=== PATIENT | male | born 1985 | race Caucasian/White ===

== ENCOUNTER → 2020-03-26 07:47 | Outpatient (BNVA) | payer MEDICARE, SELFPAY | PROVIDERS: Family Provider Family Medicine; PCP Family Medicine; Visit Provider Specialist | DX: G62.9 Polyneuropathy, unspecified (principal); M79.661 Pain in right lower leg | CPT/HCPCS: 95909 ==

== ENCOUNTER 2020-05-29 15:34 | Outpatient (CLI) | payer MEDICARE, SELFPAY ==
[2020-05-29 16:41] LABS: C Reactive Protein 5.6 mg/L (0.0-4.9); Vitamin B12 292 pg/mL (232-1245)
[2020-05-29 17:06] LABS: Folate Level > 20.0 ng/mL (4.5-32.2)
[2020-05-29 17:56] LABS: Erythrocyte Sedimentation Rate 11 mm/hr (0-10)
[2020-06-04 10:02] LABS: Methylmalonic Acid 163 nmol/L (87-318)
== END 2020-05-29 15:35 | disposition home or self-care (01) ==
LOC: LAB 15:39
PROVIDERS: PCP Family Medicine; Visit Provider Licensed Practical Nurse
DX: G62.89 Other specified polyneuropathies (principal)
CPT/HCPCS: 82607; 82746; 83921; 84260; 85651; 86140; 86431; 99204

== ENCOUNTER → 2020-06-05 14:52 | Outpatient (BNVA) | payer MEDICARE, SELFPAY | PROVIDERS: PCP Family Medicine; Visit Provider Licensed Practical Nurse | DX: E53.8 Deficiency of other specified B group vitamins (principal); G62.89 Other specified polyneuropathies | CPT/HCPCS: 99213 ==

== ENCOUNTER 2020-06-16 10:27 | Outpatient (RCR) | payer MEDICARE, SELFPAY | END 2020-07-05 23:59 | disposition home or self-care (01) | LOC: MPT 10:27 | PROVIDERS: PCP Family Medicine; Referring Provider Licensed Practical Nurse; Visit Provider Licensed Practical Nurse | DX: G62.89 Other specified polyneuropathies (principal) | CPT/HCPCS: 97110; 97140; 97161; 97530 ==

== ENCOUNTER → 2020-06-30 08:50 | Outpatient (BNVA) | payer MEDICARE, SELFPAY | PROVIDERS: PCP Family Medicine; Visit Provider Licensed Practical Nurse | DX: G62.89 Other specified polyneuropathies (principal) | CPT/HCPCS: 99213 ==

== ENCOUNTER → 2021-01-06 12:37 | Outpatient (BNVA) | payer MEDICARE, SELFPAY | PROVIDERS: PCP Family Medicine; Visit Provider Specialist | DX: G43.719 Chronic migraine without aura, intractable, without status migrainosus (principal) | CPT/HCPCS: 99204 ==

== ENCOUNTER → 2021-02-16 09:45 | Outpatient (BNVA) | payer MEDICARE, SELFPAY | PROVIDERS: PCP Family Medicine; Visit Provider Specialist | DX: G43.709 Chronic migraine without aura, not intractable, without status migrainosus (principal) | CPT/HCPCS: 99214 ==

== ENCOUNTER → 2021-04-06 10:24 | Outpatient (BNVA) | payer MEDICARE, SELFPAY | PROVIDERS: PCP Family Medicine; Visit Provider Specialist | DX: G43.709 Chronic migraine without aura, not intractable, without status migrainosus (principal); Z71.89 Other specified counseling | CPT/HCPCS: 99213 ==

== ENCOUNTER → 2021-04-15 09:31 | Outpatient (BNVA) | payer MEDICARE, SELFPAY | PROVIDERS: PCP Family Medicine; Visit Provider Family Medicine | DX: G43.019 Migraine without aura, intractable, without status migrainosus (principal); G62.89 Other specified polyneuropathies; R51.9 Headache, unspecified; G89.29 Other chronic pain; J30.2 Other seasonal allergic rhinitis; K21.9 Gastro-esophageal reflux disease without esophagitis; E53.8 Deficiency of other specified B group vitamins; Z13.1 Encounter for screening for diabetes mellitus; Z79.899 Other long term (current) drug therapy | CPT/HCPCS: 80053; 80061; 82607; 85025 ==

== ENCOUNTER → 2022-12-08 15:16 | Outpatient (BNVA) | payer MEDICARE, SELFPAY | PROVIDERS: PCP Family Medicine; Visit Provider Internal Medicine | DX: G43.019 Migraine without aura, intractable, without status migrainosus (principal) | CPT/HCPCS: 85651 ==

== ENCOUNTER → 2023-02-02 09:34 | Outpatient (BNVA) | payer MEDICARE, SELFPAY | PROVIDERS: PCP Family Medicine; Visit Provider Internal Medicine Endocrinology, Diabetes & Metabolism | DX: D49.7 Neoplasm of unspecified behavior of endocrine glands and other parts of nervous system (principal); E78.1 Pure hyperglyceridemia | CPT/HCPCS: 82533; 84146; 84305; 84403; 84439; 84443 ==

== ENCOUNTER → 2023-03-22 09:55 | Outpatient (BNVA) | payer MEDICARE, SELFPAY | PROVIDERS: PCP Family Medicine; Visit Provider Surgery | DX: K21.9 Gastro-esophageal reflux disease without esophagitis (principal) | CPT/HCPCS: 99203 ==

== ENCOUNTER 2023-04-15 09:32 | Day surgery (SDC) | payer MEDICARE, SELFPAY ==
[2023-04-13 12:40] VITALS: BMI 42.0
[2023-04-15 10:14] VITALS: BP 121/72; PULSE 75; RESP 18; TEMP 36.2; O2SAT 99
[2023-04-15] MEDS: sodium chloride 0.9% 1,000 ML 30 ML IV (10:23)
--- NOTE | 2023-04-15 11:06 | ANES.PREANE2 ---
Pre-Anesthetic Assessment Height/Weight: Height 1.57 m Weight 104.326 kg Temp Pulse Resp BP Pulse Ox O2 Del Method 97.2 F L 75 18 121/72 99 Room Air 04/15/23 10:14 04/15/23 10:14 04/15/23 10:14 04/15/23 10:14 04/15/23 10:14 04/15/23 10:14 Operation Date: 04/15/23 11:00 Proposed Procedures p EGD [id number],K21.9(Not Applicable) - Rogelio Mills DO Familial anesthetic complications: PONV Was Beta Luis F taken within 24 hours: N/A Was Clonidine taken within 24 hours: N/A Last intake: > 8hrs Social No alcohol and No tobacco Exam alert, oriented x 3, clear to auscultation bilaterally and regular rate & rhythm Airway Mallampati: Class II Dentition: full GI Gastroesophageal Reflux Disease Neuropsych pituitary cyst, Anesthetic Plan ASA status: 3 Anesthesia: MAC Risk of > 500 ml blood loss (7ml/kg in children): No Medications/Allergies Home Medications Medication Instructions Recorded Confirmed Last Taken Type cetirizine 10 mg capsule (All Day 10 mg PO DAILY 90 days #90 caps 05/04/22 04/15/23 04/14/23 Rx Allergy (cetirizine)) triamcinolone acetonide 0.1 % 1 applic topical BID #454 grams 05/04/22 04/13/23 Unknown Rx topical cream cholecalciferol (vitamin D3) 350 1,000 unit PO DAILY 12/22/22 04/15/23 04/14/23 History mcg (14,000 unit) capsule erenumab-aooe 70 mg/mL 75 mg SUBCUT .monthly 12/22/22 04/13/23 03/17/23 History subcutaneous auto-injector (Aimovig Autoinjector) fiber well- vitafusion gummies 10 mg PO DAILY 12/22/22 04/13/23 04/13/23 History mecobalamin (vitamin B12) 5,000 1,000 mcg PO DAILY 12/22/22 04/15/23 04/14/23 History mcg chewable tablet multivitamin 1 tab PO DAILY 12/22/22 04/15/23 04/14/23 History omega 3-qib-oty-fish oil 1,000 mg 1 cap PO DAILY 12/22/22 04/15/23 04/14/23 History (120 mg-180 mg) capsule (Fish Oil) pantoprazole 40 mg tablet,delayed 40 mg PO BID 04/13/23 04/15/23 04/14/23 History release Allergies Allergy/AdvReac Type Severity Reaction Status Date / Time No Known Allergies Allergy Verified 04/13/23 12:33 Current Medications Generic Name Dose Route Start Last Admin Trade Name Freq PRN Reason Stop Dose Admin Sodium Chloride 1,000 mls @ 30 mls/hr 04/15/23 09:45 04/15/23 10:23 Sodium Chloride 0.9% IV 04/16/23 09:44 30 mls/hr .Q24H ADRIEN Administration PFSH Anesthesia Medical History B12 deficiency Blood per rectum History of hemorrhoids Peripheral neuropathy Pituitary tumor Surgical History H/O removal of testicle Family History Father Bipolar 1 disorder Family/Other Neuropathy Social History Smoking and tobacco status: never smoked Alcohol intake: never Substance/Drug Use: never Caregiver/support person: Yes (Mother. Patient mild retardation. ) Household members: family Housing: House Marital status: Single service: No Current occupational status: disabled Data Anesthesia Cardiac Studies: No Data to Display
--- NOTE | 2023-04-15 11:36 | W.PM.OPSUD ---
Surgery/Procedure H&P Update DATE OF PROCEDURE: April 15, 2023 DATE H&P PERFORMED: 03/22/23 H&P UPDATE INFORMATION: I have reviewed H&P completed within last 30 days, I have examined patient prior to procedure and No changes to prior documentation PLANNED PROCEDURE: Operation Date: 04/15/23 11:00 Proposed Procedures p EGD [id number],K21.9(Not Applicable) - Rogelio Mills, DO
--- NOTE | 2023-04-15 12:30 | ANE.PACU2 ---
Inpatient post-anesthesia follow up: Airway intact: Yes Vital signs: Temperature 97 F Pulse Rate 78 Respiratory Rate 16 Blood Pressure 118/72 Pulse Oximetry 97 Oxygen Delivery Me thod Room Air Oxygen Flow Rate Fraction of Inspir ed Oxygen Hydration adequate: Yes Nausea and vomiting: No Pain level: 1 Mental status: Baseline
[2023-04-15 12:31] VITALS: BP 105/63; PULSE 71; RESP 14; TEMP 36.1; O2SAT 96
[2023-04-15 12:41] VITALS: BP 103/65; PULSE 76; RESP 14; O2SAT 93
[2023-04-15 12:51] VITALS: BP 117/81; PULSE 66; RESP 14; O2SAT 95
[2023-04-15 13:01] VITALS: BP 118/72; PULSE 78; RESP 16; O2SAT 97
== END 2023-04-15 13:40 | disposition home or self-care (01) ==
PROVIDERS: PCP Family Medicine; Visit Provider Surgery
PROC: 0DJ08ZZ Inspection of Upper Intestinal Tract, Via Natural or Artificial Opening Endoscopic (ICD-10-PCS; CPT 43235; principal; 2023-04-15 11:00)
DX: K21.9 Gastro-esophageal reflux disease without esophagitis (principal); K29.50 Unspecified chronic gastritis without bleeding; K31.7 Polyp of stomach and duodenum
CPT/HCPCS: 43239; 88305; 88342; J2704; J7030

== ENCOUNTER → 2023-05-06 16:08 | Outpatient (BNVA) | payer MEDICARE, SELFPAY | PROVIDERS: PCP Family Medicine; Visit Provider Surgery | DX: Z09 Encounter for follow-up examination after completed treatment for conditions other than malignant neoplasm (principal) | CPT/HCPCS: 99212 ==

== ENCOUNTER → 2023-07-21 09:26 | Outpatient (BNVA) | payer MEDICARE, SELFPAY | PROVIDERS: PCP Family Medicine; Visit Provider Emergency Medicine | DX: B34.9 Viral infection, unspecified (principal); R11.0 Nausea; U07.1 COVID-19 | CPT/HCPCS: 87400; 87426 ==

== ENCOUNTER → 2023-08-16 08:16 | Outpatient (BNVA) | payer MEDICARE, SELFPAY | PROVIDERS: PCP Family Medicine; Visit Provider Family Medicine | DX: D49.7 Neoplasm of unspecified behavior of endocrine glands and other parts of nervous system (principal); J30.2 Other seasonal allergic rhinitis; K21.9 Gastro-esophageal reflux disease without esophagitis | CPT/HCPCS: 84146; 84402; 84403 ==

== ENCOUNTER → 2024-01-09 09:16 | Outpatient (BNVA) | payer MEDICARE, SELFPAY | PROVIDERS: PCP Family Medicine; Visit Provider Family Medicine | DX: B34.9 Viral infection, unspecified (principal); J98.8 Other specified respiratory disorders; B97.89 Other viral agents as the cause of diseases classified elsewhere | CPT/HCPCS: 87400; 87426 ==

== ENCOUNTER 2025-07-04 18:12 | Emergency (ER) | payer MEDICARE, SELFPAY ==
--- OUTSIDE RECORDS SUMMARY | 2025-07-04 18:18 | XMS_ITS | Clinical Summary ---
Author Organization [facility] Address [address] [place]: Epic Prelude ADT [place] [address] Care Team Providers Care Logistics Manager Name Role Phone Unavailable Primary Care Provider Unavailabl e Allergies No known active allergies Medications No known medications Active Problems Problem Noted Date Diagnosed Date Overweight(278.02) 12/14/2008 Autism 12/09/2008 Mental retardation 12/09/2008 Encounters Date Type Department Care Team Description 05/14/2025 External Device Data STL ABSTRACTION Provider, Abstract 04/10/2025 External Device Data ST[facility] ABSTRACTION Provider, Abstract from Last 3 Months Immunizations Immunization Administration Dates Next Due (TDVAX)(7 YRS UP) TETANUS AN D DIPHTHERIA TOXOIDS, ADSORBED (2 LF OF TETANUS TOXOID AND 2 LF OF DIPHTHERIA TOXOID), 0.5ML (PF), IM 04/30/2002 Hepatitis B Vaccine 01/21/1999,12/17/1998 Influenza Seasonal Unspecified Formulation IM Social History Tobacco Use Types Packs/Day Years Used Date Smoking Tobacco: Never Smokeless Tobacco: Never Alcohol Use Standard Drinks/Week Comments No 0 (1 standard drink = 0.6 oz pur e alcohol) Sex and Gender Information Value Date Recorded Sex Assigned at Male 03/06/2025 11:04 PM CDT Legal Sex Male 2:28 PM TUBE MOUNTER Gender Identity Not on file Sexual Orientation Not on file Last Filed Vital Signs Vital Sign Reading Time Taken Comments Blood Pressure 112/64 03/22/2025 2:29 PM CDT Pulse 83 03/22/2025 2:29 PM CDT Temperature - - Respiratory Rate - - Oxygen Saturation 98% 03/22/2025 2:29 PM CDT Inhaled Oxygen Concentration - - Weight 110.7 kg (244 lb) 03/22/2025 2:29 PM CDT Height 177.8 cm (5' 10 ) 03/22/2025 2:29 PM CDT Body Mass Index 35.01 03/22/2025 2:29 PM CDT Plan of Treatment Upcoming Encounters Date Type Department Care Team (Late st Contact Info) Description 03/25/2026 10:30 AM CDT Office Visit [facility] [address] [place] [address] Ulisses Colunga MD [address] [place] [address] Health Maintenance Due Date Last Done Comments Pre-Diabetes and Diabetes Screening 1986 HEPATITIS B VACCINES (3 of 3 - 3-dose series) 04/08/1999 01/21/1999, 01/21/1999, 12/17/1998, Additional history exists HPV VACCINES (1 - 3-dose SCD M series) 2013 INFLUENZA VACCINE (#1) 2025 07/03/2004 COVID-19 Vaccine (2 - 2024-2 6 season) 2025 04/17/2021 DTAP/TDAP/TD VACCINES (7 - T d or Tdap) 10/04/2029 10/04/2019, 04/30/2002, 03/06/1992, Additional history exists Insurance [facility]
--- OUTSIDE RECORDS SUMMARY | 2025-07-04 18:18 | XMS_ITS | Encounter Summary ---
Author Organization [facility] Address [address] [place] [address] Care Team Providers Care Labor And Employment Paralegal Name Role Phone Florencio Mariee MD Primary Care Provider [phone] Encounter Details Date Type Department Care Team (Late st Contact Info) Description 12/06/2006 Outpatient Historical [facility] Ear, Nose and Throat 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
--- OUTSIDE RECORDS SUMMARY | 2025-07-04 18:18 | XMS_ITS | Encounter Summary ---
Author Organization [facility] Address [address] [place] [address] Care Team Providers Care Specialty Sales Consultant Name Role Phone Florencio Mariee MD Primary Care Provider [phone] Encounter Details Date Type Department Care Team (Latest Contact Info) Description 11/04/2006 Outpatient Historical [facility] Ear, Nose and Throat 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
--- OUTSIDE RECORDS SUMMARY | 2025-07-04 18:18 | XMS_ITS | Clinical Summary ---
Author Organization [facility] Address [address] [place] [address] Care Team Providers Care Sales Center Associate Name Role Phone Florencio Mariee MD Primary Care Provider [phone] Allergies No known active allergies Medications No known medications Active Problems Problem Noted Date Diagnosed Date Overweight(278.02) 12/14/2008 Mental retardation 12/09/2008 Autism 12/09/2008 Immunizations Immunization Administration Dates Next Due (TDVAX)(7 [...] on file Legal Sex Male 3:52 AM OFFICE ASSISTANT Gender Identity Not on file Sexual Orientation Not on file 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 Not on file Not on file Last Filed Vital Signs Vital Sign Reading Time Taken Comments Blood Pressure 130/80 09/07/2013 1:10 PM OFFICE ASSISTANT Pulse 88 09/07/2013 1:10 PM OFFICE ASSISTANT Temperature 36.3 C (97.3 F) 09/07/2013 1:10 PM OFFICE ASSISTANT Respiratory Rate 28 09/07/2013 1:10 PM OFFICE ASSISTANT Oxygen Saturation - - Inhaled Oxygen Concentration - - Weight 110.2 kg (243 lb) 09/07/2013 1:10 PM OFFICE ASSISTANT Height 180.3 cm (5' 11 ) 09/07/2013 1:10 PM OFFICE ASSISTANT Body Mass Index 33.89 09/07/2013 1:10 PM OFFICE ASSISTANT Plan of Treatment Health Maintenance Due Date Last Done Comments HEPATITIS B VACCINES (3 of 3 - 3-dose series) 04/08/1999 01/21/1999, 12/17/1998 DTAP/TDAP/TD VACCINES (2 - Tdap) 05/01/2002 04/30/20 02 HPV VACCINES (1 - 3-dose SCDM series) 2013 INFLUENZA VACCINE (#1) 2025 07/03/2004 Insurance MEDICARE PART A AND B Care Teams Sales Center Associate Relationship Specialty Start Date End Date Florencio Mariee MD [address] [place] [address] PCP - General 10/12/06
--- OUTSIDE RECORDS SUMMARY | 2025-07-04 18:18 | XMS_ITS | Encounter Summary ---
Author Organization [facility] Address [address] [place] [address] Care Team Providers Care Outside Production Inspector Name Role Phone Florencio Mariee MD Primary Care Provider [phone] Encounter Details Date Type Department Care Team (Latest Contact Info) Description 10/14/2006 Outpatient Historical [facility] Ear, Nose and Throat [address] [place] [phone] Devin Baker MD NO ADDRESS ON FILE Unspecified Perforation of Tympanic Membrane (Primary Dx); Unspecified Otorrhea; Unspecified Mental Retardation Social History Tobacco Use Types Packs/Day Years Used Date Smoking Tobacco: Never Assessed Sex and Gender Information Value Date Recorded Sex Assigned at Not on file Legal Sex Male 3:52 AM TOOL PLANNER Gender Identity Not on file Sexual Orientation Not on file documented as of this encounter Plan of Treatment Not on file documented as of this encounter Visit Diagnoses Diagnosis Perforation of tympanic membrane, unspecified- Primary Otorrhea, unspecified Unspecified intellectual disabilities documented in this encounter Care Teams Outside Production Inspector Relationship Specialty Start Date End Date Florencio Mariee MD [address] [place] [address] PCP - General 10/12/06 documented as of this encounter
--- OUTSIDE RECORDS SUMMARY | 2025-07-04 18:18 | XMS_ITS | Encounter Summary ---
Author Organization [facility] Address [address] [place] [address] Care Team Providers Care Marquetry Worker Name Role Phone Florencio Mariee MD Primary Care Provider [phone] Encounter Details Date Type Department Care Team (Late st Contact Info) Description 10/27/2005 Emergency [facility] Emergency Department [address] [place] [phone] Cheryl Orr FNP NO ADDRESS ON FILE BACKACHE NOS (Primary Dx) Social History Tobacco Use Types Packs/Day Years Used Date Smoking Tobacco: Never Assessed Sex and Gender Information Value Date Recorded Sex Assigned at Not on file Legal Sex Male 3:52 AM 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
--- OUTSIDE RECORDS SUMMARY | 2025-07-04 18:18 | XMS_ITS | Encounter Summary ---
Author Organization [facility] Address [address] [place] [address] Care Team Providers Care Labor Representative Name Role Phone Florencio Mariee MD Primary Care Provider [phone] Encounter Details Date Type Department Care Team (Late st Contact Info) Description 03/07/2007 Outpatient Historical [facility] Ear, Nose and Throat 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
--- OUTSIDE RECORDS SUMMARY | 2025-07-04 18:18 | XMS_ITS | Encounter Summary ---
Author Organization [facility] Address [address] [place] [address] Care Team Providers Care Ultrasound Specialist Name Role Phone Florencio Mariee MD Primary Care Provider [phone] Encounter Details Date Type Department Care Team (Late st Contact Info) Description 05/10/2005 Outpatient Historical [facility] FY06 Non-Staff, Physician NO ADDRESS ON FILE Social History Tobacco Use Types Packs/Day Years Used Date Smoking Tobacco: Never Assessed Sex and Gender Information Value Date Recorded Sex Assigned at Not on file Legal Sex Male 3:52 AM DISPATCH SPECIALIST Gender Identity Not on file Sexual Orientation Not on file documented as of this encounter Plan of Treatment Not on file documented as of this encounter Procedures Procedure Name Priority Date/Time Associated Diagnosis Comments URINALYSIS MICROSCOPY ONLY Routine 05/10/2005 2:45 AM CDT URINALYSIS W/REFLEX MICROSCOPIC Routine 05/10/2005 2:45 AM CDT documented in this encounter Results * (ABNORMAL) URINALYSIS (05/10/2005 2:45 AM CDT) COLOR UA Yellow Straw INTERFACE SYSTEM CLARITY UA Cloudy(A) Clear INTERFACE SYSTEM LEUKOCYTE ESTERASE UA NEGATIVE NEGATIVE INTERFACE SYSTEM NITRITE UA NEGATIVE NEGATIVE INTERFACE SYSTEM PH UA 5.5 5.0 - 9.0 INTERFACE SYSTEM PROTEIN UA Trace(A) NEGATIVE INTERFACE SYSTEM Comment: As of 05 positive protein results obtained on routine urinalysis will not be confirmed by sulfosalicylic acid (SSA) precipitation. Current methodology for protein detection is highly sensitive for detection of albumin; therefore, confirmation is not necessary. GLUCOSE UA NEGATIVE NEGATIVE INTERFACE SYSTEM KETONES UA NEGATIVE NEGATIVE INTERFACE SYSTEM UROBILINOGEN UA 0.2 0.2 INTE RFACE SYSTEM BILIRUBIN UA NEGATIVE NEGATIVE INTERFA CE SYSTEM BLOOD UA NEGATIVE NEGATIVE INTERFACE SYSTEM SPECIFIC GRAVITY UA >=1.030(A) 1.005 - 1.030 INTERFACE SYSTEM MICRO EXAM Yes(A) No INTERFACE SYSTEM 05/10/2005 2:45 AM CDT us Physician Non-Staff URINE ORDERABLES Final Resul t Performing Organization Address [facility] Co de Phone Number INTERFACE SYSTEM Refer to clinic/hospital department * URINALYSIS MICROSCOPY ONLY (05/10/2005 2:45 AM CDT) WBC URINE 0-2 0 - 2 INTERFACE SYSTEM RBC UA None Seen 0 - 2 INTERFACE SYSTEM HYALINE CAST 0-2 0 - 2 INTERFA CE SYSTEM BACTERIA UA None Seen None Seen INTERFAC E SYSTEM 05/10/2005 2:45 AM CDT Physician Non-Staff URINE ORDERABLES Final Resul t Performing Organization Address [facility] de Phone Number INTERFACE SYSTEM Refer to clinic/hospital department documented in this encounter Visit Diagnoses Not on filedocumented in this encounter Care Teams Ultrasound Specialist Relationship Specialty Start Date End Date Florencio Mariee MD [address] [place] [phone] PCP - General 10/12/06 documented as of this encounter
--- OUTSIDE RECORDS SUMMARY | 2025-07-04 18:18 | XMS_ITS ---
Author Name JARROD KNIGHT Address [address] [place] [address] Phone Organization [facility] Address [address] [place] [address] Phone Care Team Providers Care Glue Maker Name Role Phone MD JARROD KNIGHT Unavailable [phone] ALLERGIES, ADVERSE REACTIONS AND ALERTS Allergy Name Allergy Date Allergy Status Allergy Severity Allergy Reaction NO KNOWN DRUG ALLERGIES MEDICATIONS RxNorm Brand Name Prescription Ordered Value Order Unit Start Date Date Status Fill Status Indications [id number] proprano lol 40 mg tablet SIG: propranolol 40 mg oral tablet, days, Dispense #90 Tablet, 3 RefillsDirecti ons: One po tid 90 tablet 2021 Historic [id number] sumatrip sanchez succinat e 100 mg tablet SIG: sumatriptan succinate 100 mg oral tablet, days, Dispense #9 Tablet, 3 RefillsDirecti ons: 1/2 to one tablet prn acute migraine; may repeat once after 2 hours prn. 9 tablet 2021 Historic [id number] proprano lol 40 mg tablet SIG: propranolol 40 mg oral tablet, days, Dispense #270 Tablet, 3 RefillsDirecti ons: One po tid 270 tablet 2021 Historic [id number] sumatrip sanchez succinat e 100 mg tablet SIG: sumatriptan succinate 100 mg oral tablet, days, Dispense #270 Tablet, 3 RefillsDirecti ons: 1/2 to one tablet prn acute migraine; may repeat once after 2 hours prn. 270 tablet 2021 Historic [id number] rizatrip sanchez 10 mg tablet SIG: rizatriptan 10 mg oral tablet, 90 days, Dispense #36 Tablet, 0 RefillsDirecti ons: One po prn acute migraine; may repeat once after 2 hours prn. 36 tablet 2021 Historic [id number] nortript yline 10 mg capsule SIG: nortriptyline 10 mg oral capsule, 90 days, Dispense #180 Capsule, 0 RefillsDirecti ons: One po qhs x 1 week, then 2 caps po qhs. 180 capsule 2021 Historic [id number] nortript yline 25 mg capsule SIG: nortriptyline 25 mg oral capsule, 90 days, Dispense #90 Capsule, 4 RefillsDirecti ons: One po qhs 90 capsule 2021 Historic [id number] nortript yline 25 mg capsule SIG: nortriptyline 25 mg oral capsule, 90 days, Dispense #90 Capsule, 4 RefillsDirecti ons: One po qhs 90 capsule 2021 Historic [id number] rizatrip sanchez 10 mg tablet SIG: rizatriptan 10 mg oral tablet, 90 days, Dispense #36 Tablet, 4 RefillsDirecti ons: One po prn acute migraine; may repeat once after 2 hours prn. 36 tablet 2021 Historic [id number] Aimovig Autoinje ctor 70 mg/mL auto-inj neris SIG: Aimovig Autoinjector 70 mg/mL subcutaneous auto-injector, 0 days, Dispense #1 Milliliter, 12 RefillsDirecti ons: Inject 70 mg (1 ml) SQ monthly for migraine prevention 1 auto-in ctal 2022 Historic [id number] Aimovig Autoinje ctor 70 mg/mL auto-inj neris SIG: Aimovig Autoinjector 70 mg/mL subcutaneous auto-injector, 0 days, Dispense #1 Milliliter, 12 RefillsDirecti ons: Inject 70 mg (1 ml) SQ monthly for migraine prevention 1 auto-in ctal 2022 Current [id number] Nurtec ODT 75 mg tablet,d isintegr ating SIG: Nurtec ODT 75 mg oral tablet,disinte grating, 30 days, Dispense #16 Tablet, 12 Refills, Directions: One po prn acute migraine; limit 1 tab in 24 hours 16 tablet, disinte grating 2024 Historic [id number] Ubrelvy 100 mg tablet SIG: Ubrelvy 100 mg oral tablet, 30 days, Dispense #16 Tablet, 12 Refills, Directions: One po prn acute migraine; may repeat once after 2 hours prn. 16 tablet 2024 Current PROBLEMS Problem Code Problem Description Problem Status Problem Da te Problem End Date G43.719-Chronic migraine without aura, intractable, without status migrainosus Chronic migraine without aura, intractable, without status migrainosus Current 11/29/2021 G60.3-IDIOPATHIC PROGRESSIVE NEUROPATHY IDIOPATHIC PROGRESSIVE NEUROPATHY Current 11/29/2021 R20.0-Anesthesia of skin Anesthesia of skin Current 07/15/2022 R53.1-Weakness Weakness Current 08/24/2022 M21.371-FOOT DROP RIGHT FOOT FOOT DROP RIGHT FOOT Current 08/24/2022 PROCEDURES Procedure Description Date Notes NO PROCEDURES PERFORMED ASSESSMENTS Assessment None PLAN OF TREATMENT Assessment Planned Activity LOINC Planned Otilio e None CONSULTATION NOTE Note Author Date None HISTORY AND PHYSICAL NOTE Note Author Date None PROGRESS NOTE Note Author Date None DISCHARGE SUMMARY Note Author Date None CHIEF COMPLAINT AND REASON FOR VISIT FUNCTIONAL STATUS Functional or Cognitive Find ing None MENTAL STATUS Cognitive Finding None ENCOUNTERS Encounter Type Provider Diagnoses Start Date Location Disc harged to None SOCIAL HISTORY Social Status Observation Unknown if ever smoked Sex: Male CARE TEAM INFORMATION Glue Maker Provider ID Role Location Phone JARROD KNIGHT [phone] [address], [place] [address] INSURANCE PROVIDERS Payer Name Policy type / Coverage type Covered libertarian ID Policy [place] [facility] Private Health Insurance [id number] JAIRON Hassan
--- OUTSIDE RECORDS SUMMARY | 2025-07-04 18:18 | XMS_ITS | Encounter Summary ---
Author Organization [facility] Address [address] [place] [address] Care Team Providers Care Tool Machine Shop Supervisor Name Role Phone Florencio Mariee MD Primary Care Provider [phone] Encounter Details Date Type Department Care Team (Late st Contact Info) Description 10/12/2006 Emergency [facility] Emergency Department [address] [place] [phone] Pau Galvan NP NO ADDRESS ON FILE Unspecified Perforation of Tympanic Membrane (Primary Dx) Social History Tobacco Use Types Packs/Day Years Used Date Smoking Tobacco: Never Assessed Sex and Gender Information Value Date Recorded Sex Assigned at Not on file Legal Sex Male 3:52 AM NEEDLE 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
--- OUTSIDE RECORDS SUMMARY | 2025-07-04 18:19 | XMS_ITS | Encounter Summary ---
Author Organization [facility] Address [address] [place] [address] Care Team Providers Care Aeronautical Inspector Name Role Phone Florencio Mariee MD Primary Care Provider [phone] Encounter Details Date Type Department Care Team (Latest Contact Info) Description 03/07/2007 Outpatient Historical [facility] Ear, Nose and Thro[facility] [place] 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
--- OUTSIDE RECORDS SUMMARY | 2025-07-04 18:19 | XMS_ITS | Encounter Summary ---
Author Organization [facility] Address [address] [place] [address] Care Team Providers Care Trigonometry Tutor Name Role Phone Florencio Mariee MD Primary Care Provider [phone] Encounter Details Date Type Department Care Team (Latest Contact Info) Description 12/06/2006 Outpatient Historical [facility] Ear, Nose and Throat 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 Gender Identity Not on file Sexual Orientation Not on file documented as of this encounter Plan of Treatment Not on file documented as of this encounter Visit Diagnoses Diagnosis Dysfunct eustachian tube- Primary Dysfunction of Eustachian tube Other and unspecified chronic nonsuppurative otitis media Mixed hearing loss Mixed hearing loss, unspecified Unspecified intellectual disabilities documented in this encounter Care Teams Trigonometry Tutor Relationship Specialty Start Date End Date Florencio Mariee MD [address] [place] [phone] PCP - General 10/12/06 documented as of this encounter
--- OUTSIDE RECORDS SUMMARY | 2025-07-04 18:19 | XMS_ITS | Encounter Summary ---
Author Organization [facility] Address [address] [place] [address] Care Team Providers Care Rf Design Engineer Name Role Phone Florencio Mariee MD Primary Care Provider [phone] Encounter Details Date Type Department Care Team (Late st Contact Info) Description 10/14/2006 Outpatient Historical [facility] Ear, Nose and Throat [address] [place] 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
--- OUTSIDE RECORDS SUMMARY | 2025-07-04 18:19 | XMS_ITS | Encounter Summary ---
Author Organization [facility] Address [address] [place] [address] Care Team Providers Care Customer Service Representative Name Role Phone Florencio Mariee MD Primary Care Provider [phone] Encounter Details Date Type Department Care Team (Late st Contact Info) Description 08/24/2007 Outpatient Historical [facility] Ear, Nose and Throat [address] [place] 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
--- OUTSIDE RECORDS SUMMARY | 2025-07-04 18:19 | XMS_ITS | Encounter Summary ---
Author Organization [facility] Address [address] [place] [address] Care Team Providers Care Scouring Train Operator Chief Name Role Phone Florencio Mariee MD Primary Care Provider [phone] Encounter Details Date Type Department Care Team (Late st Contact Info) Description 08/24/2007 Outpatient Historical [facility] Ear, Nose and Throat [address] [place] 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
[2025-07-04 18:37] VITALS: BP 137/91; PULSE 78; TEMP 36.7; O2SAT 100; BMI 34.8
--- NOTE | 2025-07-04 19:50 | ED_ITS ---
HPI - Male Genitourinary General: Chief complaint: Urogenital-Male Stated complaint: unable to cath self today. Time Seen by Provider: 07/04/25 19:13 History of Present Illness: Selected Entries 07/04/25 18:37 ED Triage Comment PT ARRIVES POV WIT H FAMILY C/O NOT B EING ABLE TO SELF CATH. PT SELF CATH S X2 A DAY AND WAS UNABLE TO GET CAT HETER IN TODAY. [facility] CATH WAS AT 190 0 YESTERDAY PER PT . Patient is 39-year-old male with history of self cathing, twice daily, due to history of urethrocutaneous fistula with previous retention. This was recently reduced to twice daily self cathing by primary urologist located in [place] due to stricture at the urethral opening, and in the urethra inside the penis. Today, patient notes that he is unable to pass the catheter in his urethra. He is not have any dysuria. He is able to void without catheterization. He denies any fevers, flank pain. No history of renal colic. Associated symptoms: Deny dysuria Related Data Home Medications ?Medication ?Instructions ?Recorded ?Confirmed cholecalciferol (vitamin D3) 350 1,000 unit PO DAILY 0 12/22/22 01/12/24 mcg (14,000 unit) capsule erenumab-aooe 70 mg/mL 75 mg SUBCUT .monthly 01/12/24 subcutaneous auto-injector (Aimovig Autoinjector) fiber well- vitafusion gummies 10 mg PO DAILY 12/22/22 01/12/24 mecobalamin (vitamin B12) 5,000 1,000 mcg PO DAILY 01/12/24 mcg chewable tablet multivitamin 1 tab PO DAILY 12/22/2205/29 omega 7-fph-cbj-fish oil 1,000 mg 1 cap PO DAILY 12/2201/12/24 (120 mg-180 mg) capsule (Fish Oil) gabapentin 300 mg capsule 300 mg PO TID 07/21/2301/11 Previous Rx's ?Medication ?Instructions ?Recorded cetirizine 10 mg capsule (All Day 10 mg PO DAILY 90 da ys #90 caps 11/30/23 Allergy (cetirizine)) pantoprazole 20 mg tablet,delayed 20 mg PO DAILY PRN h eartburn 90 11/30/23 release days #90 tabs dextromethorphan polistirex 30 10 ml PO Q12H PRN cough #89 mL 01/09/24 mg/5 mL oral susp ext.release 12hr prednisone 20 mg tablet 40 mg (2 x 20 mg) PO .q AM 5 days 01/12/24 #10 tabs pcpmpvwhgfssyuc-rwgnmfbnzrnkjsh-UZ 7.5 ml PO Q6H PRN c old symptoms 01/16/24 2 mg-30 mg-10 mg/5 mL oral syrup #160 mL (Bromfed DM) cefdinir 300 mg capsule 300 mg PO BID 10 days #20 ca ps 07/04/25 Allergies Allergy/AdvReac Type Severity Reaction Status Date / Time No Known Allergies Allergy Verified 07/04/25 18:41 Review of Systems Const: Reports: fatigue; Denies: fever(s) Eyes: Denies: change in vision ENMT: Reports: throat pain Card: Denies: chest pain Resp: Reports: productive cough GI: Denies: abdominal pain or change in bowel habits : Reports: other (Urinary stricture); Denies: flank pain, difficulty urinating, dysuria, urinary frequency, urinary urgency, urinary hesitancy, urinary dribbling, difficulty starting urination or change in urine stream Musc: Denies: muscle weakness Skin/Breast: Denies: rash Neuro: Denies: headache(s) Psych: Denies: anxiety or depression Matty/Lymph: Denies: easy bleeding PFSH ED PFSH: Medical History (Updated 07/04/25 @ 21:09 by RHYS Ryder) Blood per rectum History of hemorrhoids B12 deficiency Pituitary tumor Peripheral neuropathy Surgical History History of esophagogastroduodenoscopy (EGD) Oct 2017 Hx of colonoscopy no polyps hemorrhoid's found, jun, H/O removal of testicle Family History Father Bipolar 1 disorder Family/Other Neuropathy Social History Smoking and tobacco/nicotine status: never used tobacco/nicotine Alcohol intake: never Substance/Drug Use: never Caregiver/support person: Yes (Mother. Patient mild retardation. ) Household members: family Housing: House Marital status: Single service: No Current occupational status: disabled Physical Exam Const: COMMON NORMALS: no acute distress, patient oriented x3 and alert GENERAL APPEARANCE: cooperative HENMT: COMMON NORMALS: atraumatic HEAD & SCALP: atraumatic THROAT: posterior oropharynx abnormal erythema Eye: COMMON NORMALS: conjunctivae normal CONJUNCTIVA: Yes conjunctivae normal Resp: COMMON NORMALS: normal respiratory effort and clear to auscultation bilaterally AUSCULTATION: clear to auscultation bilaterally Cardio: COMMON NORMALS: regular rate, regular rhythm and No murmurs present (Cardio) RATE: regular rate RHYTHM: regular rhythm GI: COMMON NORMALS: Normal to inspection, nondistended, normoactive bowel sounds present and non-tender : COMMON NORMALS: Yes no CVA tenderness BLADDER/KIDNEY EXAM: Yes no CVA tenderness MALE GROIN/PERINEUM EXAM: Yes Genital lesions present (Small urethral head stricture) PENIS: uncircumcised and Genital lesions present (Small urethral head stricture) Back/Pelvis: COMMON NORMALS: no CVA tenderness Extremity: GENERAL: Yes normal exam except as noted Neuro: COMMON NORMALS: patient oriented x3 and moves all extremities SENSORIUM/ORIENTATION: Yes alert GAIT: Yes Normal gait present Skin: COMMON NORMALS: no rashes or lesions noted GENERAL SKIN EXAM: no rashes or lesions noted and no erythema Course Vital Signs: Vital signs: Vital Signs Temperature 98.0 F 07/04/25 18:37 Pulse Rate 78 07/04/25 18:37 Blood Pressure 137/91 07/04/25 18:37 Pulse Oximetry 100 07/04/25 18:37 Oxygen Delivery Me thod Room Air 07/04/25 18:37 MDM - Male Medical Decision Making 195 ml bladder scan Then 100 ml output Patient is 39-year-old male with urocutaneous fistula opening on the dorsum of the penis. He is supposed to self cath twice daily. On evaluation in the ED, he did have WBCs of 21?50, indicating most likely associated pyuria with the 4+ bacteria. He did not have nitrate positive however. He will be treated as a UTI, which most likely worsened his issues with self cathing. I have advised holding off on self cathing for 24-48 hours and contacting primary urologist. He had 195 mL liter bladder scan prior to output of 100 mL. This is appropriate for urinary retention of the 95 mL. I discussed with patient and his mom I am concerned for issues with his stricture to await antibiotic coverage and retry with Uro-Jet. They both state understanding. They will call their urologist today in [place] for further decision making as well. All their questions answered their satisfaction. Medical Records I reviewed the patient's medical records. Lab Data I reviewed the patient's lab results. Laboratory Results Urine Color Yellow (Yellow) 07/04/25 20:04 Urine Appearance Clear (CLEAR) 07/04/25 20:04 Urine pH 5.5 (5-7) 07/04/25 20:04 Ur Specific [place] 1.014 (1.005-1.030) 07/04/25 20:04 Urine Protein Negative (Negative) 07/04/25 20:04 Urine Glucose (UA) Negative (Normal) 07/04/25 20:04 Urine Ketones Negative (Negative) 07/04/25 20:04 Urine Blood Negative (Negative) 07/04/25 20:04 Urine Nitrate Negative (Negative) 07/04/25 20:04 Urine Bilirubin Negative (Negative) 07/04/25 20:04 Urine Urobilinogen 0.2 mg/dL (Negative) 07/04/25 20:04 Ur Leukocyte Esterase 1+ (Negative) A 07/04/25 20:04 Urine RBC 0-2 /hpf (0-2) 07/04/25 20:04 Urine WBC 21-50 /hpf (0-5) H 07/04/25 20:04 Ur Squamous Epith Cells 0-5 /hpf (0-5) 07/04/25 20:04 Amorphous Sediment Not Reportable 07/04/25 20:04 Urine Bacteria 4+ /hpf (NONE) H 07/04/25 20:04 Hyaline Casts 0-4 /lpf H 07/04/25 20:04 No radiology studies performed this visit Discharge Plan Discharge Patient Disposition: Home Clinical Impression: Pyuria due to bacterial urinary tract infection Urethral stricture in male Qualifiers: Urethral stricture type: post-traumatic, male Qualified Code(s): N35.014 - Post-traumatic urethral stricture, male, unspecified Condition: Stable Prescriptions: New cefdinir 300 mg capsule 300 mg PO BID 10 Days Qty: 20 0RF No Action gabapentin 300 mg capsule 300 mg PO TID prednisone 20 mg tablet 40 mg PO .q AM 5 Days Qty: 10 0RF multivitamin Tablet 1 tab PO DAILY omega 1-pox-umt-fish oil [Fish Oil] 1,000 mg (120 mg-180 mg) capsule 1 cap PO DAILY cholecalciferol (vitamin D3) 350 mcg (14,000 unit) capsule 1,000 unit PO DAILY Aimovig Autoinjector 70 mg/mL auto-injector 75 mg SUBCUT .monthly mecobalamin (vitamin B12) 5,000 mcg tablet,chewable 1,000 mcg PO DAILY fiber well- vitafusion gummies 10 mg PO DAILY dextromethorphan polistirex 30 mg/5 mL suspension,extended rel 12 hr 10 ml PO Q12H PRN (Reason: cough) Qty: 89 2RF All Day Allergy (cetirizine) 10 mg capsule 10 mg PO DAILY 90 Days Qty: 90 0RF pantoprazole 20 mg tablet,delayed release (DR/EC) 20 mg PO DAILY PRN (Reason: heartburn) 90 Days Qty: 90 0RF rdcofepkqgjjlii-oakyxubdy-ZN [Bromfed DM] 2-30-10 mg/5 mL syrup 7.5 ml PO Q6H PRN (Reason: cold symptoms) Qty: 160 1RF Discharge Orders: Discharge ED (Routine); Ordered 07/04/25 Ordered By: Bing Jerez Referrals: Vishal Brice MD [Primary Care Provider, [facility]] Discharge Diet: Usual diet Discharge Activity: Resume usual activity Patient Instructions: Urinary Tract Infection in Women (ED), Patient Portal & Daniela Instructions Activity Restrictions/Additional Instructions: - Antibiotic sent to the pharmacy. Utilize as directed. - Since you are on an antibiotic, utilize an active culture yogurt or take daily probiotic -Since your output is fine right now, hold off on catheterization additional 24- 48 hours. When you do, utilize the lidocaine to avoid any pain. This was sent home for you. If you need to self cath before then, utilize the lidocaine. - Contact your urologist in [place] for further evaluation and information. -Feel free to return to the ED with further issues Thank you for choosing [facility] for your healthcare needs today. You have been screened and evaluated and felt safe for discharge. Health conditions do change or evolve sometimes and as such it is important that you follow up with your Primary Doctor to be re checked, 3-5 days is a general good time frame for follow up. You are always welcome to return to the ED for re assessment if your symptoms are worsening or you have new concerns Print Language: Sri Lankan Coding Level of Care Code ED Supervisor Personnel Clerks for Noel Turcios
[2025-07-04 20:21] LABS: Glucose Urine UA Negative (Normal); Nitrate Urine Negative (Negative); Specific Gravity, Urine 1.014 (1.005-1.030)
[2025-07-04 20:26] LABS: Add Urine Microscopic? YES
--- NOTE | 2025-07-04 20:54 | PC.NURSE ---
After bladder scan, 195mL urine noted on scan, pt was able to use restroom and urinated 100mL out for urine sample.
[2025-07-04] MEDS: lidocaine 2% Urojet 20 mL TOPICAL (21:17)
[2025-07-04] MEDS: cefTRIAXone 1,000 MG in water for injection-sterile 2.1 ML 2.1 MG IM (21:22)
== END 2025-07-04 21:28 | disposition home or self-care (01) ==
PROVIDERS: Emergency Provider Physician Assistant; PCP Family Medicine
DX: N39.0 Urinary tract infection, site not specified (principal); N35.014 Post-traumatic urethral stricture, male, unspecified
CPT/HCPCS: 51798; 81001; 87077; 87086; 87186; 96372; 99284; J0696; J9999